=== PATIENT | female | born 1975 | race Two or more races ===

== ENCOUNTER 2023-12-15 01:27 | Emergency (ER) | payer OTHER ==
[~2023-12-15] VITALS: Ht 149.9 cm; Wt 52.6 kg
[2023-12-15] MEDS ORDERED: CELEXA10 MG PO (01:47)
[2023-12-15] MEDS ORDERED: TETANUS & DIPHTHERIA TOX,ADULT 0.5 ML VIAL IM STA (02:06)
[2023-12-15] MEDS ORDERED: CEFTRIAXONE SODIUM 1,000 MG VIAL IM STA (02:06)
[2023-12-15] MEDS ORDERED: INTESTINEX680 M1 PO (03:19)
[2023-12-15] MEDS ORDERED: AMOX-CLAV 875-1 EACH PO (03:19)
[2023-12-15] MEDS ORDERED: DICLOFENAC POTA50 MG PO (03:19)
== END 2023-12-15 04:07 | disposition home or self-care (01) ==
LOC: ER 01:27
DX: S01.02XA Laceration with foreign body of scalp, initial encounter (principal); W18.12XA Fall from or off toilet with subsequent striking against object, initial encounter; Y93.89 Activity, other specified; Y92.012 Bathroom of single-family (private) house as the place of occurrence of the external cause